=== PATIENT | male | born 1980 | race African-American/Black ===

== ENCOUNTER 2019-09-21 16:07 | Emergency (ER) | payer MEDICAID ==
[~2019-09-21] VITALS: Ht 177.8 cm; Wt 81.6 kg
[~2019-09-21 16:07] MED LIST: IBUPROFEN600 M1 PO
[2019-09-21 16:32] VITALS: BP 132/80
--- NOTE | 2019-09-21 16:36 | Emergency Room Report ---
History of Present Illness General Chief Complaint: Chest Pain Source: Patient Present Illness HPI Patient presents with complaints of chest pain points to midsternal area for discomfort Reports that he had similar symptoms several years ago and they improved by themselves recently over the past several days he again started experiencing some discomfort And was concerned and came to the emergency room denies any shortness of breath denies any pleurisy Denies any vomiting or diarrhea denies any recent travel denies any known contact with covid-19 patient's Allergies: Coded Allergies: No Known Allergies (Unverified , 11/15/14) COVID-19 Screening Contact w/high risk pt: No Recent Travel to affected area: No Experienced COVID-19 symptoms?: No Patient History Past Medical History: see triage record Reviewed Nursing Documentation: PMH: Agreed; PSxH: Agreed Review of Systems All Other Systems: negative except mentioned in HPI Physical Exam Vital Signs Date Time Temp Pulse Resp B/P (MAP) Pulse Ox O2 Delivery O2 Flow Rate FiO2 09/21/19 16:26 98.2 66 16 156/103 (120) 98 Room Air Sp02 EP Interpretation: reviewed, normal General Appearance: well appearing, no apparent distress Head: normocephalic, atraumatic Eyes: bilateral eye PERRL, bilateral eye EOMI ENT: hearing grossly normal, normal pharynx, TMs + canals normal, uvula midline Neck: full range of motion, supple, no meningismus, no bony tend Respiratory: lungs clear, normal breath sounds, no rhonchi, no respiratory distress, no retraction, no accessory muscle use Cardiovascular #1: normal peripheral pulses, regular rate, rhythm, no edema, no gallop, no JVD, no murmur Gastrointestinal: normal bowel sounds, non tender, soft, no mass, no organomegaly, non-distended, no guarding, no hernia, no pulsatile mass, no rebound Genitourinary: no CVA tenderness Musculoskeletal: normal inspection Neurologic: motor strength/tone normal, 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, oriented x3 , sensory intact, responsive Psychiatric: mood/affect normal Skin: no rash Lymphatic: normal inspection, no adenopathy Medical Decision Making Diagnostic Impression: Primary Impression: Chest pain ER Course Patient is a fairly complex patient with multiple differential to consideration including but not limited to cardiac cardiopulmonary and vascular emergencies Patient has a low cardiac score EKG was performed which is normal x-ray was also obtained Patient has appropriate oxygenation lung sounds are appropriate Patient is stable for close outpatient follow-up EKG Diagnostic Results Rate: normal Rhythm: NSR ST Segments: no acute changes Rhythm Strip Diag. Results EP Interpretation: yes Rate: 60 Rhythm: NSR, no PVC's, no ectopy Chest X-Ray Diagnostic Results Chest X-Ray Diagnostic Results : Chest X-Ray Ordered: Yes # of Views/Limited/Complete: 1 View Indication: Chest Pain EP Interpretation: Yes Interpretation: no consolidation, no effusion, no pneumothorax Impression: No acute disease Electronically Signed by: Tree Baltazar DO Last Vital Signs Date Time Temp Pulse Resp B/P (MAP) Pulse Ox O2 Delivery O2 Flow Rate FiO2 09/21/19 16:26 98.2 66 16 156/103 (120) 98 Room Air Status: improved Disposition: HOME, SELF-CARE Condition: Improved Scripts No Active Prescriptions or Reported Meds Additional Instructions: Patient is provided with the discharge instructions notified to follow up with primary doctor in the next 2-3 days otherwise return to the er with any worsening symptoms. Please note that this report is being documented using [employer] technology. This can lead to erroneous entry secondary to incorrect interpretation by the dictating instrument. Tree Baltazar DO Sep 21, 2019 16:36
[2019-09-21 16:44] VITALS: BP 122/78
--- NOTE | 2019-09-21 16:59 | Diagnostic Imaging Report ---
Indication: Chest pain Technique: One view of the chest Comparison: none Findings: Lungs and pleural spaces are clear. Heart size is normal. Impression: No acute process
== END 2019-09-21 17:00 | disposition home or self-care (01) ==
LOC: EMR 16:55
DX: R07.9 Chest pain, unspecified (principal)
CPT/HCPCS: 71045; 93005; Z7502; 99283